=== PATIENT | male | born 1960 | race Caucasian/White ===

== ENCOUNTER 2017-04-16 16:18 | Emergency (ER) | payer MEDICAID ==
[2017-04-16 16:26] VITALS: BP 158/95
[2017-04-16] MEDS ORDERED: CEPHALEXIN 250 MG CAPSULE PO STA (17:21)
[2017-04-16] MEDS ORDERED: TETANUS/DIPHTHERIA/PERTUSSIS 0.5 ML SYRINGE IM ONE ×2 (17:21→17:27)
[2017-04-16] MEDS ORDERED: SULFAMETH/TRIMETH DS 800/160 MG TABLET PO STA (17:21)
[2017-04-16] MEDS ORDERED: CEPHALEXIN 250 MG CAPSULE PO ONE (17:26)
[2017-04-16] MEDS ORDERED: SULFAMETH/TRIMETH DS 800/160 MG TABLET PO ONE (17:27)
--- NOTE | 2017-04-16 17:48 | ED Physician Documentation ---
PD HPI LOWER EXT INJURY - Stated complaint Stated Complaint: R FOOT CUT - Chief complaint Chief Complaint: Wound - History obtained from History obtained from: Patient - History of Present Illness PD HPI LOW EXT INJURY LOCATION: Right, Foot Type of injury: Laceration Where injury occurred: Other (beach 2 days ago) Timing - onset: How many days ago (2) Timing - duration: Days (2) Timing - details: Abrupt onset Pain level max: 4 Pain level now: 2 Improved by: Rest Worsened by: Moving, Palpating Associated symptoms: Swelling, Discolored (red). No: Weakness, Numbness, Tingling Similar symptoms before: Has not had sx before Recently seen: Not recently seen Review of Systems Constitutional: denies: Fever, Chills GI: denies: Vomiting Skin: denies: Rash Musculoskeletal: denies: Neck pain, Back pain Neurologic: denies: Focal weakness, Numbness, Headache PD PAST MEDICAL HISTORY - Past Medical History Past Medical History: Yes Cardiovascular: Hypertension - Past Surgical History Past Surgical History: Yes HEENT: Tonsil/Adenoidectomy - Present Medications Home Medications: Ambulatory Orders Medication Instructions Recorded Confirmed Cephalexin [Keflex] 500 mg PO Q6H #28 capsule 04/16/17 Losartan [Cozaar] 25 mg PO DAILY 04/16/17 04/16/17 Sulfamethox/Trimeth 800/160 1 each PO BID #14 tablet 04/16/17 [Bactrim Ds 800/160] - Allergies Allergies/Adverse Reactions: Allergies Allergy/AdvReac Type Severity Reaction Status Date / Time No Known Drug Allergies Allergy Verified 04/16/17 16:26 - Social History Does the pt smoke?: No Smoking Status: Never smoker Does the pt drink ETOH?: Yes - Immunizations Immunizations are current?: Yes PD ED PE NORMAL - Vitals Vital signs reviewed: Yes - General General: Alert and oriented X 3, No acute distress - Derm Derm: Warm and dry - Extremities Extremities: Other (R lateral foot - superficial laceration. mild erythema, swelling and no drainage. NVI. No FB.) - Neuro Neuro: Alert and oriented X 3 - Psych Psych: Normal mood, Normal affect Results - Vitals Vitals: Vital Signs - 24 hr 04/16/17 16:23 Temperature 36.5 C Heart Rate 75 Respiratory 16 Rate Blood Pressure 158/95 H O2 Saturation 100 - Rads (name of study) R foot xray Radiology: Prelim report reviewed, EMP read contemporaneously, See rad report ( normal, no FB) PD MEDICAL DECISION MAKING - ED course Complexity details: reviewed results, re-evaluated patient, considered differential, d/w patient ED course: Patient is a 56-year-old male who presents to the emergency department with a laceration to the right foot. No acute findings on x-ray of retained foreign body. Tdap given. Will place on antibiotics for cellulitis. No evidence of retained foreign body on exam. Patient counseled regarding signs and symptoms for which I believe and urgent re-evaluation would be necessary. Patient with good understanding of and agreement to plan and is comfortable going home at this time This document was made in part using voice recognition software. While efforts are made to proofread this document, sound alike and grammatical errors may occur. Departure - Departure Disposition: 01 Home, Self Care Clinical Impression: Laceration Cellulitis Qualifiers: Site of cellulitis: extremity Site of cellulitis of extremity: lower extremity Laterality: left Qualified Code(s): L03.116 - Cellulitis of left lower limb Condition: Good Instructions: ED Infec Skin Cellulitis Follow-Up: your,doctor in 1 week for recheck [Other] Prescriptions: Sulfamethox/Trimeth 800/160 [Bactrim Ds 800/160] 1 each PO BID #14 tablet Cephalexin [Keflex] 500 mg PO Q6H #28 capsule Comments: Take all antibiotics until gone. Return if you worsen. Your blood pressure was elevated today on check in to the emergency department. This does not mean that you have hypertension, it is a common phenomenon to check into the emergency department and have elevated blood pressure. I recommend that you see your primary care physician within the week to have it rechecked when you're feeling better. Discharge Date/Time: 04/16/17 18:08
--- NOTE | 2017-04-16 18:05 | XRAY Preliminary Report ---
Exam: XR Foot 3 View RT IMPRESSION: No acute bony abnormality or radiopaque foreign body. [facility] SITE ID: [id number]
--- NOTE | 2017-04-16 18:06 | XRAY Report ---
EXAM: RIGHT FOOT RADIOGRAPHY EXAM DATE: 04/16/2017 05:40 PM. CLINICAL HISTORY: Lacerated lateral foot on crab shell 2 days ago. Concern for foreign body. COMPARISON: None. TECHNIQUE: 3 views. FINDINGS: Bones: Old posttraumatic deformity of the fifth metatarsal. No acute fractures or bone lesions. Joints: Normal. No subluxations. Soft Tissues: Lateral soft tissue swelling. No foreign body identified. IMPRESSION: No acute bony abnormality or radiopaque foreign body. [facility] Referring Provider Line: [phone] SITE ID: [id number]
== END 2017-04-16 18:08 | disposition home or self-care (01) ==
LOC: ED 16:18
DX: S91.312A Laceration without foreign body, left foot, initial encounter (principal); L03.116 Cellulitis of left lower limb; W45.8XXA Other foreign body or object entering through skin, initial encounter; Y92.832 Beach as the place of occurrence of the external cause; Z23 Encounter for immunization; I10 Essential (primary) hypertension
CPT/HCPCS: 73630; 90471; 90715; 99283; A9270